=== PATIENT | male | born 1955 | race Two or more races ===

== ENCOUNTER 2025-03-26 11:32 | Emergency (ER) | payer OTHER ==
[~2025-03-26] VITALS: Ht 193 cm; Wt 104.3 kg
[2025-03-26] MEDS: ASPIRIN 325 MG TABLET PO ONE (11:55)
[2025-03-26 12:01] LABS: PLATELET COUNT (AUTO) 165 K/uL (150-450); RED BLOOD CELL COUNT(AUTO) 4.11 MIL/uL (4.5-6.0); RED CELL DISTRIBUTION WIDTH 14.6 % (11.5-15.0); WHITE BLOOD COUNT (AUTO) 4.6 K/uL (4.3-11.0)
[2025-03-26 12:10] LABS: CALCIUM, SERUM 9.5 mg/dL (8.5-10.1); CREATININE 1.5 mg/dL (0.6-1.3); SODIUM SERUM 138.0 mmol/L (136-145); UREA NITROGEN, BLOOD 21.0 mg/dL (7-18)
[2025-03-26 12:23] LABS: NT-PRO BNP 80 pg/mL (0-125)
[2025-03-26] MEDS ORDERED: NITROGLYCERIN 0.4 MG/TAB BOTTLE ONE (12:40)
[2025-03-26] MEDS: IV NS 0.9% 1,000 ML BAG IV ONE (12:41)
[2025-03-26] MEDS: NITROGLYCERIN 0.4 MG/TAB BOTTLE SL ONE (12:46)
[2025-03-26 16:45] VITALS: BP 135/62; TEMP 97.9; O2SAT 99
== END 2025-03-26 17:08 | disposition short-term general hospital (02) ==
LOC: ER 11:51
DX: R07.89 Other chest pain (principal); I10 Essential (primary) hypertension; E11.9 Type 2 diabetes mellitus without complications; Z86.73 Personal history of transient ischemic attack (TIA), and cerebral infarction without residual deficits; R06.02 Shortness of breath
CPT/HCPCS: 99285; 96360; 71045; 93005 ×2; 85025; 80048; 36415; 84484 ×2; 83880; J7030